=== PATIENT | female | born 1955 | race Caucasian/White ===

== ENCOUNTER 2023-09-29 12:05 | Emergency (ER) | payer MEDICARE, SELFPAY ==
[2023-09-29 12:09] VITALS: BP 177/71; PULSE 98; RESP 20; TEMP 37.1; O2SAT 94; BMI 33.3
--- NOTE | 2023-09-29 12:34 | CT_ITS ---
The [address] [address] Patient Name: TR GASTELUM MRN: [facility]:[id number] date: 1955 Sex: F Assigned Patient Location: ER Current Patient Location: ER Accession/Order Number: [id number] Exam Date: 09/29/2023 13:16 Report Date: 09/29/2023 13:46 At the request of: MARIANNE LUNDY Procedure: CT facial bones wo con EXAM: Head, maxillofacial and cervical spine CTs performed without contrast. Dose reduction technique used: Automated exposure control and/or adjustment of the mA and/or kV according to patient size and/or use of iterative reconstruction technique. REASON FOR EXAM: fall, facial injury COMPARISON: None FINDINGS: HEAD: No intracranial hemorrhage, mass effect, midline shift, fractures or evidence of acute ischemic infarct. No hydrocephalus. Mild generalized cerebral and cerebellar volume loss. Minimal small vessel gliosis. Small midline frontal scalp hematoma. MAXILLOFACIAL: No acute facial bone or paranasal sinus fractures. Bilateral orbits are intact. No mandible fracture or dislocation. Bilateral globes are grossly intact. No orbital hematoma or inflammatory changes. Left maxillary sinus mucus retention cyst. Paranasal sinuses and mastoid air cells are otherwise clear. Advanced bilateral temporomandibular joint degenerative changes. C-SPINE: No fractures, dislocations or acute malalignment of the cervical spine. Cervical spine degenerative changes with multilevel bilateral mild and moderate neural foraminal stenoses. Minimal anterolisthesis of C3 on C4 and C4 on C5 on a degenerative basis. Multilevel spinal canal stenoses that are mild or moderate, worst at the C5-C6 level. Remainder unremarkable. CT/CT facial bones wo con IMPRESSION: 1. No acute intracranial or cervical spine abnormalities. 2. Small frontal scalp hematoma. 3. Otherwise, no acute maxillofacial abnormalities. Electronically authenticated by: BRYAN LEON Date: 09/29/2023 13:46
--- NOTE | 2023-09-29 12:34 | CT_ITS ---
The [address] [address] Patient Name: TR GASTELUM MRN: [facility]:[id number] date: 1955 Sex: F Assigned Patient Location: ER Current Patient Location: ER Accession/Order Number: [id number] Exam Date: 09/29/2023 13:16 Report Date: 09/29/2023 13:46 At the request of: MARIANNE LUNDY Procedure: CT head/brain wo con EXAM: Head, maxillofacial and cervical spine CTs performed without contrast. Dose reduction technique used: Automated exposure control and/or adjustment of the mA and/or kV according to patient size and/or use of iterative reconstruction technique. REASON FOR EXAM: fall, facial injury COMPARISON: None FINDINGS: HEAD: No intracranial hemorrhage, mass effect, midline shift, fractures or evidence of acute ischemic infarct. No hydrocephalus. Mild generalized cerebral and cerebellar volume loss. Minimal small vessel gliosis. Small midline frontal scalp hematoma. MAXILLOFACIAL: No acute facial bone or paranasal sinus fractures. Bilateral orbits are intact. No mandible fracture or dislocation. Bilateral globes are grossly intact. No orbital hematoma or inflammatory changes. Left maxillary sinus mucus retention cyst. Paranasal sinuses and mastoid air cells are otherwise clear. Advanced bilateral temporomandibular joint degenerative changes. C-SPINE: No fractures, dislocations or acute malalignment of the cervical spine. Cervical spine degenerative changes with multilevel bilateral mild and moderate neural foraminal stenoses. Minimal anterolisthesis of C3 on C4 and C4 on C5 on a degenerative basis. Multilevel spinal canal stenoses that are mild or moderate, worst at the C5-C6 level. Remainder unremarkable. CT/CT head/brain wo con IMPRESSION: 1. No acute intracranial or cervical spine abnormalities. 2. Small frontal scalp hematoma. 3. Otherwise, no acute maxillofacial abnormalities. Electronically authenticated by: BRYAN LEON Date: 09/29/2023 13:46
--- NOTE | 2023-09-29 12:39 | ED.FALL1 ---
HPI - Fall General Chief Complaint: Fall Stated Complaint: FACIAL INJURY/ FALL Time Seen by Provider: 09/29/23 12:11 Source: patient Mode of arrival: Wheelchair History of Present Illness HPI Narrative: Patient fell out of her chair and landed on the hard wooden floor, striking her face and causing bruising and swelling to both orbits and caused the nose to bleed. She takes aspirin and Plavix daily. This occurred around 7 or 730am this morning. No LOC. No vomiting or seizure activity since the injury. Related Data Allergies Allergy/AdvReac Type Severity Reaction Status Date / Time No Known Drug Allergies Allergy Verified 09/29/23 12:13 Exam Narrative Exam Narrative: Nurses note and vital signs reviewed and patient is not hypoxic. afebrile General: The patient appears well and in no apparent distress. Patient is resting comfortably on cart. GCS = 15. Skin: Warm, dry, no pallor noted. Head: Swelling, ecchymosis and tenderness to the lower forehead, both orbits and the bridge of the nose. Her eyelids are swollen and ecchymotic. Remainder of the face, jaw, head/scalp are normocephalic, atraumatic Neck: Supple, trachea mid-line, no tenderness, no lymphadenopathy. Full ROM and no cervical spinal tenderness. The patient has no step-offs or crepitus noted Eyes: PERRLA, EOMI. Eyelids swollen bilaterally as detailed above. ENT: TM's clear, no hemotympanum detected, no blood in posterior oropharynx Cardiovascular: Regular Rate and Rhythm Respiratory: Patient is in no distress, no accessory muscle use, lungs are clear to auscultation, no wheezing, rales or rhonchi Chest Wall: no tenderness Back: No tenderness to palpation. Musculoskeletal: no sign of long bone fracture. Moves all four extremities in all modalities with 5/5 strength. GI: Normal bowel sounds, no tenderness to palpation, no masses appreciated. No rebound, guarding, or rigidity noted. Neurological: A&O x4, normal equal customer support representative strength, normal finger to nose, normal speech, normal coordination, normal motor, normal sensory. Psychiatric: Cooperative Constitutional Vital Signs, click to edit/add: Last Vital Signs Temp 98.7 F 09/29/23 12:09 Pulse 98 H 09/29/23 12:09 Resp 20 09/29/23 12:09 BP 177/71 H 09/29/23 12:09 Pulse Ox 94 L 09/29/23 12:09 O2 Del Method Room Air 09/29/23 12:09 Course Vital Signs Vital signs: Vital Signs Temperature 98.7 F 09/29/23 12:09 Pulse Rate 98 H 09/29/23 12:09 Respiratory Rate 20 09/29/23 12:09 Blood Pressure 177/71 H 09/29/23 12:09 Pulse Oximetry 94 L 09/29/23 12:09 Oxygen Delivery Method Room Air 09/29/23 12:09 Temperature 98.7 F 09/29/23 12:09 Pulse Rate 98 H 09/29/23 12:09 Respiratory Rate 20 09/29/23 12:09 Blood Pressure 177/71 H 09/29/23 12:09 Pulse Oximetry 94 L 09/29/23 12:09 Oxygen Delivery Method Room Air 09/29/23 12:09 MDM - Fall MDM Narrative Medical decision making narrative: Patient given zofran and norco and CT scans of the cervical spine, head and facial bones obtained. CT scans identify facial ecchymosis/hematoma but no fractures, ICH or other worrisome findings. Patient informed of results, given reassurance and discharged home. PCP follow up or ED return if worse. Imaging Data ct head, facial, cervical spine: Attestation: I have reviewed the pertinent imaging results. Radiologist's impression: ITS Impressions Facial Bones CT 09/29/23 12:34 IMPRESSION: 1. No acute intracranial or cervical spine abnormalities. 2. Small frontal scalp hematoma. 3. Otherwise, no acute maxillofacial abnormalities. Electronically authenticated by: BRYAN LEON Date: 09/29/2023 13:[address] 09/29/23 12:34 IMPRESSION: 1. No acute intracranial or cervical spine abnormalities. 2. Small frontal scalp hematoma. 3. Otherwise, no acute maxillofacial abnormalities. Electronically authenticated by: BRYAN LEON Date: 09/29/2023 13:[address] 09/29/23 12:43 IMPRESSION: 1. No acute intracranial or cervical spine abnormalities. 2. Small frontal scalp hematoma. 3. Otherwise, no acute maxillofacial abnormalities. Electronically authenticated by: BRYAN LEON Date: 09/29/2023 13:46 Discharge Plan Discharge Chief Complaint: Fall Clinical Impression: Closed head injury, Traumatic ecchymosis of right orbit, Traumatic ecchymosis of left orbit, Contusion of face, Epistaxis due to trauma Patient Disposition: Home, Self-Care Time of Disposition Decision: 13:49 Instructions: Nosebleed (ED), Head Injury (ED), Facial Contusion (ED) Stand Alone Forms: Portal Instructions Referrals: Physician,Non-Staff, MD [Primary Care Provider] - 1 week
--- NOTE | 2023-09-29 12:43 | CT_ITS ---
The [address] [address] Patient Name: TR GASTELUM MRN: [facility]:[id number] date: 1955 Sex: F Assigned Patient Location: ER Current Patient Location: ER Accession/Order Number: [id number] Exam Date: 09/29/2023 13:16 Report Date: 09/29/2023 13:46 At the request of: MARIANNE LUNDY Procedure: CT cervical spine wo con EXAM: Head, maxillofacial and cervical spine CTs performed without contrast. Dose reduction technique used: Automated exposure control and/or adjustment of the mA and/or kV according to patient size and/or use of iterative reconstruction technique. REASON FOR EXAM: fall, facial injury COMPARISON: None FINDINGS: HEAD: No intracranial hemorrhage, mass effect, midline shift, fractures or evidence of acute ischemic infarct. No hydrocephalus. Mild generalized cerebral and cerebellar volume loss. Minimal small vessel gliosis. Small midline frontal scalp hematoma. MAXILLOFACIAL: No acute facial bone or paranasal sinus fractures. Bilateral orbits are intact. No mandible fracture or dislocation. Bilateral globes are grossly intact. No orbital hematoma or inflammatory changes. Left maxillary sinus mucus retention cyst. Paranasal sinuses and mastoid air cells are otherwise clear. Advanced bilateral temporomandibular joint degenerative changes. C-SPINE: No fractures, dislocations or acute malalignment of the cervical spine. Cervical spine degenerative changes with multilevel bilateral mild and moderate neural foraminal stenoses. Minimal anterolisthesis of C3 on C4 and C4 on C5 on a degenerative basis. Multilevel spinal canal stenoses that are mild or moderate, worst at the C5-C6 level. Remainder unremarkable. CT/CT cervical spine wo con IMPRESSION: 1. No acute intracranial or cervical spine abnormalities. 2. Small frontal scalp hematoma. 3. Otherwise, no acute maxillofacial abnormalities. Electronically authenticated by: BRYAN LEON Date: 09/29/2023 13:46
[2023-09-29] MEDS: ONDANSETRON 4 MG RAPDIS TABLET SL (12:56)
[2023-09-29] MEDS: HYDROCODONE/ACET 5-325 MG TABLET 1 TAB PO (12:57)
== END 2023-09-29 14:22 | disposition home or self-care (01) ==
PROVIDERS: Emergency Provider Emergency Medicine
DX: S09.8XXA Other specified injuries of head, initial encounter (principal); W07.XXXA Fall from chair, initial encounter; S05.12XA Contusion of eyeball and orbital tissues, left eye, initial encounter; S05.11XA Contusion of eyeball and orbital tissues, right eye, initial encounter; S00.83XA Contusion of other part of head, initial encounter; R04.0 Epistaxis; Z79.82 Long term (current) use of aspirin; Z79.02 Long term (current) use of antithrombotics/antiplatelets
CPT/HCPCS: 70450; 70486; 72125; 99284; Q0162

== ENCOUNTER 2024-05-10 10:21 | Emergency (ER) | payer OTHER, SELFPAY ==
[2024-05-10] VITALS (27 sets, daily range): BP systolic 129–163; BP diastolic 62–83; PULSE 84–106; TEMP 37; O2SAT 67–98
--- NOTE | 2024-05-10 10:48 | XR_ITS ---
The [address] [address] Patient Name: TR GASTELUM MRN: [id number] date: 1955 Sex: F Assigned Patient Location: ER Current Patient Location: ER Accession/Order Number: [id number] Exam Date: 05/10/2024 11:25 Report Date: 05/10/2024 11:51 At the request of: MILLA YAÑEZ Procedure: XR chest 1V EXAMINATION: XR chest 1V HISTORY: Shortness of breath COMPARISON: 07/15/2010 TECHNIQUE: AP portable FINDINGS: LUNGS: Mild perihilar infiltrates with moderate peribronchial thickening. Mild patchy parenchymal infiltrates VASCULATURE: No increased pulmonary vasculature. PLEURA: No pneumothorax, effusion, or pleural thickening. CARDIAC: No cardiomegaly or cardiac silhouette abnormality. MEDIASTINUM: No visible mass or adenopathy. BONES: No fracture or visible bone lesion. OTHER: Negative. XR/XR chest 1V IMPRESSION: Bilateral perihilar and scattered parenchymal infiltrates with peribronchial thickening. Consider bronchiolitis/pneumonia Electronically authenticated by: NAILA MCGOWAN Date: 05/10/2024 11:51
--- NOTE | 2024-05-10 10:48 | ECG_ITS ---
The [facility] Test Date: 2024-05-10 Pat Name: TR GASTELUM Department: Room: - Gender: Female Scale Technician: : 1955 Requested By: [id number] Order Number: [id number] Reading MD: BAKARI BROOKS Measurements Intervals Dickens Rate: 102 P: -97165 VA: -01747 QRS: 45 QRSD: 104 T: 6 QT: 350 QTc: 408 Interpretive Statements 04234 Atrial fibrillation with rapid ventricular response with aberrant conduction, or ventricular premature complexes 32470 Nonspecific Twave abnormality, probably digitalis effect 0102 ARTIFACT PRESENT 9140 abnormal rhythm ECG Electronically Signed On 05-10-2024 23:11:38 EDT by BAKARI BROOKS
[2024-05-10] MEDS: IPRATROPIUM/ALBUTEROL SULFATE 3 ML AMPUL.NEB IH (11:03)
--- NOTE | 2024-05-10 11:06 | ED.GENADUL1 ---
HPI HPI - General Adult General Chief complaint: Upper Respiratory Infection Stated complaint: SOB, COUGH, CONGESTION Time Seen by Provider: 05/10/24 10:25 Source: patient and family Source information: spouse Mode of arrival: Wheelchair Limitations: other Limitations comment: breathing History of Present Illness HPI narrative: Patient presents to ED complaint of shortness of breath. Patient arrived in respiratory distress with a oxygen saturation of 67%. I was called to the room immediately. She was placed on a nonrebreather and her oxygenation quickly improved to the mid 90s. Patient states she has had an upper respiratory infection for the past 2 weeks which has been worsening. She saw her doctor on Wednesday and they stated it was a viral syndrome and to take [id number] medication which she has been doing. She does peritoneal dialysis at night and she did do her treatment last night. She denies any significant weight gain or congestive heart failure. She states that the shortness of breath has been getting worse as well as productive cough and some wheezing. She has not had a fever but has felt warm on and off and had some chills. Denies chest pain, no vomiting or diarrhea no abdominal pain. Related Data Home Medications ?Medication ?Instructions ?Recorded ?Confirmed atorvastatin 40 mg tablet 40 mg PO DAILY 05/10/24 05/10/24 calcitriol 0.25 mcg capsule 0.25 mcg PO .3 times a week 05/10/24 05/10/24 cariprazine 1.5 mg capsule 1.5 mg PO DAILY 05/10/24 05/10/24 (Vraylar) carvedilol 12.5 mg tablet 12.5 mg PO BID 05/10/24 05/10/24 clonidine HCl 0.1 mg tablet 0.1 mg PO TID 05/10/24 05/10/24 clopidogrel 75 mg tablet 75 mg PO DAILY 05/10/24 05/10/24 gabapentin 300 mg capsule 300 mg PO TID 05/10/24 05/10/24 hydralazine 50 mg tablet 50 mg PO BID 05/10/24 05/10/24 lisinopril 20 mg tablet 40 mg PO DAILY 05/10/24 05/10/24 sertraline 100 mg tablet 150 mg PO DAILY 05/10/24 05/10/24 Allergies Allergy/AdvReac Type Severity Reaction Status Date / Time No Known Drug Allergies Allergy Verified 09/29/23 12:13 Opioid HPI Opioid Management Most Recent Opioid Data: Last Pain Scale 0 05/10/24 11:11 Last ED Pain Assessment 05/10/24 11:11 Review of Systems ROS Status of ROS 10 or more systems reviewed and unremarkable except as noted in history and below Exam Narrative Exam Narrative: Time Seen: [] Vital Signs: [Per nurse's notes.] General: [Alert]Respiratory distress Skin: [Warm, dry, no rash.] Head: [Normocephalic, atraumatic.] Neck: [Supple, trachea midline.] Eye: [Pupils are equal, round and reactive to light, extraocular movements are intact, normal conjunctiva.] Ears, nose, mouth and throat: oral mucosa moist. Cardiovascular: [Tachycardia, no murmur.] Respiratory: Wheezing bilateral lungs. Inspiratory expiratory wheezing and diminished breath sounds throughout. Respiratory distress, moderate. Hypoxia] Chest wall: [No tenderness, no deformity.] Gastrointestinal: [Soft, nontender, non distended, normal bowel sounds.] MSK: 5 out of 5 muscle strength x 4 extremities no calf pain or edema. Below the knee amputation right leg Lymphatics: [No lymphadenopathy.] Psychiatric: [Cooperative, appropriate mood & affect.] Neurological: [Alert and oriented to person, place, time, and situation, no focal neurological deficit observed.] Constitutional Vital Signs, click to edit/add: Last Vital Signs Temp 98.6 F 05/10/24 11:01 Pulse 106 H 05/10/24 11:01 Resp 40 H 05/10/24 10:42 BP 151/69 H 05/10/24 12:48 Pulse Ox 93 L 05/10/24 12:52 O2 Del Method Vapotherm 05/10/24 12:52 O2 Flow Rate 40 05/10/24 12:52 FiO2 50 05/10/24 12:52 Course Vital Signs Vital signs: Vital Signs Respiratory Rate 40 H 05/10/24 10:42 Pulse Oximetry 67 L 05/10/24 10:42 Oxygen Delivery Method Room Air 05/10/24 10:42 Temperature 98.6 F 05/10/24 11:01 Pulse Rate 106 H 05/10/24 11:01 Respiratory Rate 40 H 05/10/24 10:42 Blood Pressure 151/69 H 05/10/24 12:48 Pulse Oximetry 93 L 05/10/24 12:52 Oxygen Delivery Method Vapotherm 05/10/24 12:52 Oxygen Delivery Flow Rate 40 05/10/24 12:52 Fraction of Inspired Oxygen 50 05/10/24 12:52 Medical Decision Making MDM Narrative Medical decision making narrative: Patient was doing much better on Vapotherm. Oxygen saturation improved to 93%. She was feeling better as well. Chest x-ray shows diffuse pneumonia worse on the right. Patient is a peritoneal dialysis patient therefore I spoke to her russian teacher Dr. Rand who wants the patient transferred over to [facility]. Patient was started on Vanco and Zosyn which he did approve and a call was placed to [facility]. I then spoke to Dr. Payne who who will accept the patient over at [facility] in ICU. Patient is comfortable with care plan for transfer to [facility]. Differential Diagnosis Differential Diagnosis: Sepsis, pneumonia, acute renal failure, chronic kidney disease, electrolyte Medical Records Medical records reviewed: Yes I reviewed the patient's medical records Lab Data Lab results reviewed: Yes I reviewed the patient's lab results Labs: Lab Results 05/10/24 05/10/24 05/10/24 Range/Units 10:52 10:55 11:24 WBC 34.9 H* (4.0-11.0) 10^3/uL RBC 3.82 L (4.20-5.40) 10^6/uL Hgb 12.3 (12.0-16.0) g/dL Hct 37.0 (36.0-48.0) % MCV 96.9 (81.0-99.0) fL MCH 32.2 (26.7-34.0) pg MCHC 33.2 (29.9-35.2) g/dL RDW 13.0 (11.0-15.0) % Plt Count 438 (150-450) 10^3/uL MPV 9.9 (9.5-13.5) fL Seg Neuts % (Manual) 87.0 H (43.0-75.0) Band Neutrophils % 1.0 (0-5) % Lymphocytes % (Manual) 5.0 L (20.5-60.0) % Monocytes % (Manual) 7.0 (1.7-12.0) % Eosinophils % (Manual) 0.0 L (0.9-7.0) % Basophils % (Manual) 0.0 L (0.2-2.0) % Neutrophils # (Manual) 30.36 H (1.4-6.5) 10^3/uL Band Neutrophils # 0.3 (0.0-0.3) 10^3/uL Lymphocytes # (Manual) 1.74 (1.20-3.80) 10^3/uL Monocytes # (Manual) 2.44 H (0.30-0.80) 10^3/uL Eosinophils # (Manual) 0.00 (0.00-0.70) 10^3/uL Basophils # (Manual) 0.00 (0.00-0.10) 10^3/uL PT 11.1 (9.0-11.6) sec INR 1.05 Puncture Site Rr ABG pH 7.294 L* (7.350-7.450) ABG pCO2 39.1 (35.0-45.0) mmHg ABG pO2 63.5 L (80.0-100.0) mmHg ABG HCO3 18.9 L (22.0-26.0) mmol/L ABG O2 Saturation 88.8 % ABG Base Excess -7.6 L (-2.0-2.0) mmol/L Ravin Test Positive (POSITIVE) O2 Liters/Min 6 Sodium 130 L (136-145) mmol/L Potassium 4.3 (3.5-5.1) mmol/L Chloride 92 L (98-107) mmol/L Carbon Dioxide 21.4 (21.0-32.0) mmol/L Anion Gap 20.9 BUN 71.0 H (7.0-18.0) mg/dL Creatinine 5.64 H* (0.55-1.02) mg/dL Est GFR ( Amer) 9 L (>=60) Est GFR (Non-Af Amer) 7 L (>=60) BUN/Creatinine Ratio 12.6 Glucose 289 H (74-106) mg/dL Lactate 1.0 (0.4-2.0) mmol/L Calcium 9.2 (8.5-10.1) mg/dL Total Bilirubin 0.5 (0.2-1.0) mg/dL AST 28 (15-37) U/L ALT 30 (14-59) U/L Alkaline Phosphatase 163 H (46-116) U/L Troponin I High Sens 34.8 (4.0-51.3) pg/mL NT-Pro-B Natriuret Pep 3090.0 H* (<=900.0) pg/mL Total Protein 7.7 (6.4-8.2) g/dL Albumin 2.6 L (3.4-5.0) g/dL Globulin 5.1 g/dL Albumin/Globulin Ratio 0.5 SARS-CoV-2 Ag (CV2AG) Negative (NEGATIVE) Imaging Data Chest x-ray: Radiologist's impression: ITS Impressions Chest X-Ray 05/10/24 10:48 IMPRESSION: Bilateral perihilar and scattered parenchymal infiltrates with peribronchial thickening. Consider bronchiolitis/pneumonia Electronically authenticated by: NAILA PAYNE Date: 05/10/2024 11:51 ECG Data Attestation: I personally reviewed and interpreted this ECG as follows: Interpretation: EKG INTERPRETATION Time: []1049 Rate: []102 Rhythm: _ []Sinus tachycardia ST segments: _ [] T waves: _ [] Ectopy: _ [] P wave/MA interval: _ [] QRS interval: _ [] QT interval: _ [] Comparison: _ [] Comparison EKG date: [] Performed by: [self] Discharge Plan Discharge Chief Complaint: Upper Respiratory Infection Clinical Impression: Respiratory distress, Pneumonia, CKD (chronic kidney disease), Hypoxia Patient Disposition: [facility] Time of Disposition Decision: 13:40 Discharge Location: [facility] Condition: Critical Mode of Transportation: EMS Prescriptions / Home Meds: No Action atorvastatin 40 mg tablet 40 mg PO DAILY calcitriol 0.25 mcg capsule 0.25 mcg PO .3 times a week Vraylar 1.5 mg capsule 1.5 mg PO DAILY carvedilol 12.5 mg tablet 12.5 mg PO BID clonidine HCl 0.1 mg tablet 0.1 mg PO TID clopidogrel 75 mg tablet 75 mg PO DAILY gabapentin 300 mg capsule 300 mg PO TID hydralazine 50 mg tablet 50 mg PO BID lisinopril 20 mg tablet 40 mg PO DAILY sertraline 100 mg tablet 150 mg PO DAILY Print Language: Swazi Referrals: Physician,Non-Staff, MD [Primary Care Provider] - 1 week
[2024-05-10 11:07] LABS: Hemoglobin 12.3 g/dL (12.0-16.0); Mean Corpuscular HGB Conc 33.2 g/dL (29.9-35.2); Mean Corpuscular Hemoglobin 32.2 pg (26.7-34.0); Mean Corpuscular Volume 96.9 fL (81.0-99.0); Mean Platelet Volume 9.9 fL (9.5-13.5); Platelet Count 438 10^3/uL (150-450); Red Blood Count 3.82 10^6/uL (4.20-5.40)
[2024-05-10 11:10] LABS: White Blood Count 34.9 10^3/uL (4.0-11.0)
[2024-05-10 11:19] LABS: Internal Control Within Normal Limits; SARS-CoV-2 Ag NEGATIVE (NEGATIVE)
[2024-05-10 11:26] LABS: Segmented Neut Absolute Manual 30.36 10^3/uL (1.4-6.5)
[2024-05-10 11:27] LABS: Band Neutrophils Absolute 0.3 10^3/uL (0.0-0.3); Lymphocytes Absolute Manual 1.74 10^3/uL (1.20-3.80); Monocytes Absolute Manual 2.44 10^3/uL (0.30-0.80)
[2024-05-10] MEDS: DEXAMETHASONE SOD PHOS 10 MG/ML VIAL IV (11:31)
[2024-05-10 11:32] LABS: ABG PCO2 39.1 mmHg (35.0-45.0); Allen Test POSITIVE (POSITIVE); Base Excess ABG -7.6 mmol/L (-2.0-2.0); HCO3 ABG 18.9 mmol/L (22.0-26.0); Oxygen Saturation ABG 88.8 %; PO2 ABG 63.5 mmHg (80.0-100.0)
[2024-05-10 11:32] LABS: INR 1.05; Prothrombin Time 11.1 sec (9.0-11.6)
[2024-05-10 11:33] LABS: Alanine Aminotransferase 30 U/L (14-59); Albumin Globulin Ratio 0.5; Albumin Level 2.6 g/dL (3.4-5.0); Alkaline Phosphatase 163 U/L (46-116); Anion Gap 20.9; Aspartate Amino Transferase 28 U/L (15-37); BUN Creatinine Ratio 12.6; Bilirubin Total 0.5 mg/dL (0.2-1.0); Calcium 9.2 mg/dL (8.5-10.1); Carbon Dioxide 21.4 mmol/L (21.0-32.0); Chloride 92 mmol/L (98-107); Estimated GFR (African America 9 (>=60); Estimated GFR (Non-African Ame 7 (>=60); Globulin 5.1 g/dL; Glucose 289 mg/dL (74-106); Potassium 4.3 mmol/L (3.5-5.1); Sodium 130 mmol/L (136-145); Total Protein 7.7 g/dL (6.4-8.2); Troponin I High Sensitivity 34.8 pg/mL (4.0-51.3)
[2024-05-10 11:36] LABS: pH ABG 7.294 (7.350-7.450)
[2024-05-10 11:40] LABS: Liters per Minute 6; O2 Mode NC; Puncture Site RR
[2024-05-10] MEDS: PIPERACILLIN SODIUM/TAZOBACTAM 3.375 GM in 0.9 % SODIUM CHLORIDE 50 ML IV (12:13)
[2024-05-10] MEDS: VANCOMYCIN HCL 1,500 MG in 0.9 % SODIUM CHLORIDE 500 ML 250 MG IV (12:47)
[2024-05-10] MEDS: FUROSEMIDE 40 MG/4 ML VIAL IVP (12:48)
== END 2024-05-10 15:53 | disposition short-term general hospital (02) ==
PROVIDERS: Emergency Provider Emergency Medicine
DX: J18.9 Pneumonia, unspecified organism (principal); R06.03 Acute respiratory distress; R09.02 Hypoxemia; N18.9 Chronic kidney disease, unspecified; Z20.822 Contact with and (suspected) exposure to COVID-19
CPT/HCPCS: 36415; 36600; 71045; 80053; 82805; 83605; 83880; 84484; 85007; 85027; 85610; 87040; 87811; 93005; 94640; 94799; 96365; 96366; 96367; 96375; 99285; J1100; J1940; J2543; J3370